=== PATIENT | male | born 1995 | race African-American/Black ===

== ENCOUNTER 2019-07-20 19:05 | Emergency (ER) | payer OTHER, SELFPAY ==
[2019-07-20 19:08] VITALS: BP 135/100; PULSE 84; RESP 16; O2SAT 100
--- NOTE | 2019-07-20 19:31 | ED.NAVMDI ---
HPI - Nausea/Vomiting/Diarrhea General Chief complaint: Abdominal Pain Stated complaint: N/V/D/Abdominal pain Time Seen by Provider: 07/20/19 19:08 Source: patient and RN notes reviewed Mode of arrival: ambulatory Limitations: no limitations History of Present Illness HPI Narrative: Pt is a 24 y/o male who presents to the ED with c/o nausea, vomiting, and diarrhea starting this morning. He notes that he ate at several restaurants yesterday, stating that he ended the night with a chicken sandwich from [employer]. Pt notes that he woke up this morning with nausea and vomiting. He states that he has had over 20 episodes of emesis throughout the day, and notes that he was unable to keep anything down due to his symptoms. Pt states that he develops chills and sweats while vomiting. Pt also reports having 5 episodes of diarrhea, but denies any rectal bleeding or fever. He notes that he hasn't been around any sick contacts recently. MD elicited complaint: nausea, vomiting and diarrhea Associated nausea: Yes Context: possible food poisoning Associated symptoms: diaphoresis and fever/chills (chills) Related Data Allergies Allergy/AdvReac Type Severity Reaction Status Date / Time No Known Allergies Allergy Verified 07/20/19 21:25 Review of Systems Review of Systems: All systems reviewed & are unremarkable except as noted in HPI and below Constitutional: Constitutional: Reports chills (while vomiting) and Denies fever(s) Cardiovascular: Cardiovascular: Reports diaphoresis (while vomiting) Gastrointestinal: Gastrointestinal: Denies hematochezia, Reports diarrhea, Reports nausea and Reports vomiting PMFSH Past Medical History Medical History Healthy adult male Surgical History Surgical History No significant past surgical history Social History Social History Substance use type: marijuana Exam Narrative: Exam Narrative: GENERAL: Well-appearing, well-nourished, and in no acute distress. HEAD: Normocephalic, atraumatic. EYES: PERRL and EOMI. Puffy/red eyes ENT: Mucous membranes moist. CHEST: Clear to auscultation. No respiratory distress. HEART: Regular rate and rhythm. Normal peripheral pulses. ABDOMEN: Soft, nontender, nondistended, normal active bowel sounds. EXTREMITIES: Normal range of motion. No edema. NEURO: Alert and oriented x3. PSYCH: Normal mood and affect. Course Course Emergency Course: Feels much better after fluids and antiemetics. Discharge home. Vital Signs Vital signs: Vital Signs Pulse Rate 84 07/20/19 19:08 Respiratory Rate 16 07/20/19 19:08 Blood Pressure 135/100 H 07/20/19 19:08 Pulse Oximetry 100 07/20/19 19:08 Pulse Rate 73 07/20/19 20:09 Respiratory Rate 18 07/20/19 20:09 Blood Pressure 116/55 L 07/20/19 20:09 Pulse Oximetry 98 07/20/19 20:09 MDM - Nausea/Vomiting/Diarrhea Lab Data Result diagrams: 07/20/19 19:30 07/20/19 19:30 Labs: Lab Results 07/20/19 07/20/19 07/20/19 Range/Units 19:30 19:30 19:47 WBC 9.3 (4.5-10.0) K/mm3 RBC 5.16 (4.6-6.20) M/mm3 Hgb 15.6 (14.0-18.0) g/dL Hct 48.2 (42.0-52.0) % MCV 93.4 (80-100) fl MCH 30.2 (26-34) pg MCHC 32.4 (32-36) g/dl RDW 12.0 (11.5-14.5) % Plt Count 162 (150-375) k/mm3 MPV 11.2 H (7.4-10.4) fl Immature Gran % (Auto) 0.3 (0-0.5) % Neut % (Auto) 90.4 H (45.5-73.1) % Lymph % (Auto) 3.1 L (18.3-44.2) % Dundy % (Auto) 5.7 (2.6-8.5) % Eos % (Auto) 0.3 (0-4.4) % Baso % (Auto) 0.2 (0.2-1.2) % Lymph # (Auto) 0.29 L (0.9-3.2) K/mm3 Dundy # (Auto) 0.5 (0.1-0.6) K/mm3 Eos # (Auto) 0.0 (0-0.3) K/mm3 Baso # (Auto) 0.0 (0.0-0.1) K/mm3 Abs Immat Gran (auto) 0.03 (0.00-0.031) K/mm3 Absolute Neuts (auto) 8.4 H (1.3-6.7) K/mm3 Absolute
[2019-07-20 19:36] LABS: Basophils Percent Auto 0.2 % (0.2-1.2); Eosinophils Percent Auto 0.3 % (0-4.4); Hematocrit 48.2 % (42.0-52.0); Hemoglobin 15.6 g/dL (14.0-18.0); Immature Granulocyte Absolute 0.03 K/mm3 (0.00-0.031); Immature Granulocyte Percent A 0.3 % (0-0.5); Lymphocytes Absolute Auto 0.29 K/mm3 (0.9-3.2); Lymphocytes Percent Auto 3.1 % (18.3-44.2); Mean Corpuscular HGB Conc 32.4 g/dl (32-36); Mean Corpuscular Hemoglobin 30.2 pg (26-34); Mean Corpuscular Volume 93.4 fl (80-100); Mean Platelet Volume 11.2 fl (7.4-10.4); Monocytes Absolute Auto 0.5 K/mm3 (0.1-0.6); Monocytes Percent Auto 5.7 % (2.6-8.5); Neutrophils Absolute Auto 8.4 K/mm3 (1.3-6.7); Neutrophils Percent Auto 90.4 % (45.5-73.1); Platelet Count Result 162 k/mm3 (150-375); Red Blood Count 5.16 M/mm3 (4.6-6.20); White Blood Count 9.3 K/mm3 (4.5-10.0)
[2019-07-20] MEDS: ONDANSETRON INJ 4 MG/2 ML VIAL IV PUSH (19:41)
[2019-07-20] MEDS: SODIUM CHLORIDE 0.9% IV 1,000 ML 999 ML IV CONT (19:41)
[2019-07-20 19:48] LABS: Alanine Aminotransferase 29 U/L (4-50); Albumin Level 4.9 g/dL (3.5-5.1); Alkaline Phosphatase 61 U/L (38-126); Aspartate Amino Transferase 34 U/L (17-59); Bilirubin,Total 0.8 mg/dL (0.2-1.3); Blood Urea Nitrogen 18 mg/dL (9-20); Calcium 9.7 mg/dL (8.4-10.2); Carbon Dioxide 28 mmol/L (22-30); Chloride 98 mmol/L (98-107); Estimated CRCL calculation 142 ml/min; Estimated Glomerular Filt Rate > 60; Glucose 109 mg/dL (75-110); Lipase 25 U/L (23-300); Potassium 4.3 mmol/L (3.4-5.0); Sodium 141 mmol/L (137-145)
[2019-07-20 19:59] LABS: Add Urine Microscopic? YES; Appearance Urine Clear (Clear); Bilirubin Urine Negative (Negative); Blood Urine Negative (Negative); Color Urine Yellow (Yellow); Glucose Urine UA Negative (Negative); Ketones Urine 1+ mg/dL (Negative); Leukocyte Esterase Ur Negative LEU/UL (Negative); Mucus Urine Few /lpf; Nitrate Urine Negative (Negative); Protein Urine 1+ mg/dL (Negative); Squamous Epithelial Cell Urine Rare /hpf (Few); WBC Urine 0-3 /hpf
[2019-07-20 20:00] LABS: Specific Grav Ur 1.034 (1.001-1.035)
[2019-07-20 20:09] VITALS: BP 116/55; PULSE 73; RESP 18; O2SAT 98
[2019-07-20 21:37] VITALS: BP 132/71; PULSE 76; RESP 20; O2SAT 99
== END 2019-07-20 21:39 | disposition home or self-care (01) ==
PROVIDERS: Emergency Provider Emergency Medicine
DX: K52.9 Noninfective gastroenteritis and colitis, unspecified (principal)
CPT/HCPCS: 36415; 80053; 81001; 83690; 85025; 96361; 96374; 99284; J2405; J7030

== ENCOUNTER 2020-09-16 15:17 | Outpatient (CLI) | payer OTHER, SELFPAY | END 2020-09-16 15:18 | disposition home or self-care (01) | LOC: ANHCOVIDVC 15:17 | DX: Z23 Encounter for immunization (principal) | CPT/HCPCS: 0001A; 91300 ==

== ENCOUNTER 2020-10-07 15:18 | Outpatient (CLI) | payer OTHER, SELFPAY | END 2020-10-07 15:19 | disposition home or self-care (01) | LOC: ANHCOVIDVC 15:18 | DX: Z23 Encounter for immunization (principal) | CPT/HCPCS: 0002A; 91300 ==